=== PATIENT | male | born 1990 | race Caucasian/White ===

== ENCOUNTER 2016-08-23 21:21 | Emergency (ER) | payer OTHER ==
[2016-08-23 21:42] VITALS: BP 120/60; PULSE 72; TEMP 98.6; BMI 27.4
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
[2016-08-23] MEDS ORDERED: IBUPROFEN 600 MG TABLET (FP) PO ONE ×2 (22:20→22:27)
== END 2016-08-23 23:03 | disposition home or self-care (01) ==
LOC: JERFT 21:21
DX: S89.82XA Other specified injuries of left lower leg, initial encounter (principal); Y35.811A Legal intervention involving manhandling, law enforcement official injured, initial encounter; Y93.89 Activity, other specified; Y92.89 Other specified places as the place of occurrence of the external cause; Y99.0 Civilian activity done for income or pay
CPT/HCPCS: 73562-TC-LT; 99281-25

== ENCOUNTER 2016-12-12 18:22 | Emergency (ER) | payer OTHER ==
[2016-12-12 18:31] VITALS: BP 145/60; PULSE 102; TEMP 98.2; BMI 28.8
[2016-12-12] MEDS ORDERED: IBUPROFEN 600 MG TABLET (FP) PO ONE ×2 (18:43→18:47)
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
== END 2016-12-12 19:22 | disposition home or self-care (01) ==
LOC: JERFT 18:22
PROC: 2W3DX1Z Immobilization of Left Lower Arm using Splint (ICD-10-PCS; principal; 2016-12-12)
DX: S63.502A Unspecified sprain of left wrist, initial encounter (principal); Y35.891A Legal intervention involving other specified means, law enforcement official injured, initial encounter; Y93.89 Activity, other specified; Y92.89 Other specified places as the place of occurrence of the external cause; Y99.0 Civilian activity done for income or pay
CPT/HCPCS: 73110-TC-LT; 99281-25

== ENCOUNTER 2017-05-29 18:16 | Emergency (ER) | payer OTHER ==
[2017-05-29 18:20] VITALS: BP 130/73; PULSE 77; TEMP 98.3; BMI 28.8
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
[2017-05-29] MEDS ORDERED: BACITRACIN 15 GM TUBE TOPICAL OINTMENT TP ONE (18:39)
[2017-05-29] MEDS ORDERED: DIPHTH,PERTUSS(ACELL),TET 0.5 ML DISP.SYRIN IM ONE (18:39)
[2017-05-29] MEDS ORDERED: BACITRACIN 15 GM TUBE TOPICAL OINTMENT ONE (18:42)
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
== END 2017-05-29 19:00 | disposition home or self-care (01) ==
LOC: JERFT 18:16
PROC: 3E0234Z Introduction of Serum, Toxoid and Vaccine into Muscle, Percutaneous Approach (ICD-10-PCS; principal; 2017-05-29)
DX: S60.512A Abrasion of left hand, initial encounter (principal); V48.4XXA Person boarding or alighting a car injured in noncollision transport accident, initial encounter; Y92.414 Local residential or business street as the place of occurrence of the external cause; Y93.89 Activity, other specified; Y99.0 Civilian activity done for income or pay
CPT/HCPCS: 73130-TC-LR-FY; 90715; 99281-25

== ENCOUNTER 2018-06-07 16:18 | Emergency (ER) | payer OTHER ==
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
[2018-06-07 16:27] VITALS: BP 127/87; PULSE 101; TEMP 97.8; BMI 30.2
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
== END 2018-06-07 17:32 | disposition home or self-care (01) ==
LOC: JERFT 16:18
DX: S60.311A Abrasion of right thumb, initial encounter (principal); S60.411A Abrasion of left index finger, initial encounter; M25.512 Pain in left shoulder; Y35.811A Legal intervention involving manhandling, law enforcement official injured, initial encounter; Y93.89 Activity, other specified; Y92.89 Other specified places as the place of occurrence of the external cause; Y99.0 Civilian activity done for income or pay
CPT/HCPCS: 73130-TC-RT-FY; 99281-25

== ENCOUNTER 2018-06-20 17:34 | Emergency (ER) | payer OTHER ==
[2018-06-20 17:48] VITALS: BP 128/74; PULSE 87; TEMP 98.6; BMI 29.5
[2018-06-20] MEDS ORDERED: NAPROXEN 500 MG TABLET (FP) PO ONE (17:58)
[2018-06-20] MEDS ORDERED: NAPROXEN 500 MG TABLET (FP) ONE (18:00)
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
== END 2018-06-20 18:28 | disposition home or self-care (01) ==
LOC: JER 17:34 → JERFT 17:34
DX: S69.81XA Other specified injuries of right wrist, hand and finger(s), initial encounter (principal); S60.811A Abrasion of right wrist, initial encounter; S60.511A Abrasion of right hand, initial encounter; Y35.811A Legal intervention involving manhandling, law enforcement official injured, initial encounter; Y93.89 Activity, other specified; Y92.89 Other specified places as the place of occurrence of the external cause; Y99.0 Civilian activity done for income or pay
CPT/HCPCS: 73090-TC-RT-FY; 73110-TC-RT-FY; 73130-TC-RT-FY; 99281-25

== ENCOUNTER 2019-01-30 16:42 | Emergency (ER) | payer OTHER ==
--- NOTE | 2019-01-30 17:03 | PDOC ---
Rapid Medical Evaluation Time Seen by Provider: 01/30/19 17:00 Medical Evaluation: Allergies Allergy/AdvReac Type Severity Reaction Status Date / Time No Known Allergies Allergy Verified 06/07/18 16:27 01/30/19 17:00 I have performed a brief in-person evaluation of this patient Chief complaint: c/o pain behind Right knee since yesterday after tripping over a carpet, denies striking the ground. Pertinent PE findings: stable, NAD, non-focal I have ordered the following: R knee xray The patient will proceed to the ED for further evaluation. I have performed a brief in-person evaluation of this patient. Discharge Disposition - Diagnosis Knee pain, acute - Referrals - Patient Instructions - Post Discharge Activity
[2019-01-30 17:04] VITALS: BP 146/81; PULSE 95; TEMP 98.8; BMI 26.6
[2019-01-30] MEDS ORDERED: NAPROXEN 500 MG TABLET (FP) PO ONE (17:39)
[2019-01-30] MEDS ORDERED: NAPROXEN 500 MG TABLET (FP) ONE (17:40)
--- NOTE | 2019-01-30 18:02 | PDOC ---
History of Present Illness - General Chief Complaint: Pain, Acute Stated Complaint: R KNEE PAIN Time Seen by Provider: 01/30/19 17:00 Past History - Past Medical History Allergies/Adverse Reactions: Allergies Allergy/AdvReac Type Severity Reaction Status Date / Time No Known Allergies Allergy Verified 01/30/19 17:04 Home Medications: Ambulatory Orders Naproxen 500 mg PO BID #30 tablet 01/30/19 Anemia: No Asthma: Yes Cancer: No Cardiac Disorders: No CVA: No COPD: No DVT: No Dementia: No Diabetes: No Dialysis: No GI Disorders: No Disorders: No HTN: No Kidney Stones: No Liver Disease: No Seizures: No Thyroid Disease: No - Surgical History Abdominal Surgery: No Appendectomy: No Cardiac Surgery: No Cholecystectomy: No Lung Surgery: No Neurologic Surgery: No - Immunization History Td Vaccination: Yes TDAP Vaccination: No Immunization Up to Date: Yes - Psycho Social/Smoking Cessation Hx Smoking Status: No Smoking History: Never smoked Years of Tobacco Use: 0 Have you smoked in the past 12 months: No Number of Cigarettes Smoked Daily: 0 Cigars Per Day: 0 Information on smoking cessation initiated: No Hx Alcohol Use: No Drug/Substance Use Hx: No Substance Use Type: None Hx Substance Use Treatment: No *Physical Exam - Vital Signs Last Vital Signs Temp Pulse Resp BP Pulse Ox 98.8 F 95 H 18 146/81 95 01/30/19 17:02 01/30/19 17:02 01/30/19 17:02 01/30/19 17:02 01/30/19 17:02 Discharge - Discharge Information Clinical Impression/Diagnosis: Knee pain, acute Qualifiers: Laterality: right Qualified Code(s): M25.561 - Pain in right knee Hamstring strain Qualifiers: Encounter type: initial encounter Laterality: right Qualified Code(s): S76.311A - Strain of muscle, fascia and tendon of the posterior muscle group at thigh level, right thigh, initial encounter Condition: Stable Disposition: HOME - Admission No - Follow up/Referral Referrals: Mike Beard MD [Staff Physician] - - Patient Discharge Instructions Additional Instructions: You were evaluated for your knee pain today. Your x-ray is negative for fractures. You most likely pulled her hamstring. Please take the naproxen 500 mg twice a day for 1 week to help reduce the inflammation. You may apply heat to the area to help reduce pain. Avoid standing for long periods of time. Follow-up with orthopedics within 1 week if your symptoms are not improving. Return to the ER for worsening pain, numbness and tingling to the leg or if you have any changes in your symptoms. - Post Discharge Activity
== END 2019-01-30 18:05 | disposition home or self-care (01) ==
LOC: JERFT 16:42
DX: S76.311A Strain of muscle, fascia and tendon of the posterior muscle group at thigh level, right thigh, initial encounter (principal); M25.561 Pain in right knee; W18.09XA Striking against other object with subsequent fall, initial encounter; Y93.89 Activity, other specified; Y92.89 Other specified places as the place of occurrence of the external cause; Y99.0 Civilian activity done for income or pay
CPT/HCPCS: 73564-TC-RT-FY; 99282-25

== ENCOUNTER 2021-02-04 11:50 | Emergency (ER) | payer BC, OTHER ==
[2021-02-04 12:18] VITALS: BP 126/83; PULSE 92; TEMP 98.3; BMI 29.5
== END 2021-02-04 12:20 | disposition home or self-care (01) ==
LOC: FER 11:50
DX: S61.215A Laceration without foreign body of left ring finger without damage to nail, initial encounter (principal); W26.8XXA Contact with other sharp object(s), not elsewhere classified, initial encounter
CPT/HCPCS: 99281-25

== ENCOUNTER 2023-11-29 04:44 | Day surgery (SDC) | payer BC, OTHER ==
[2023-11-28 08:15] VITALS: BMI 32.8
[2023-11-29 08:32] VITALS: TEMP 98.5
[2023-11-29 09:02] VITALS: BP 123/78; PULSE 78; RESP 20
[2023-11-29 09:50] LABS: POTASSIUM 4.2 mmol/L (3.5-5.1)
[2023-11-29 09:52] LABS: ALBUMIN 4.1 g/dl (3.4-5.0); CALCIUM 9.6 mg/dL (8.5-10.1)
[2023-11-29 09:57] LABS: BILIRUBIN,TOTAL 0.5 mg/dL (0.2-1)
== END 2023-11-29 09:08 | disposition home or self-care (01) ==
LOC: JASU-ENDO 04:44
PROVIDERS: ATTEND Internal Medicine Gastroenterology
PROC: 0DB68ZX Excision of Stomach, Via Natural or Artificial Opening Endoscopic, Diagnostic (ICD-10-PCS; 2023-11-29)
PROC: 0DB98ZX Excision of Duodenum, Via Natural or Artificial Opening Endoscopic, Diagnostic (ICD-10-PCS; principal; 2023-11-29 08:00)
DX: R10.13 Epigastric pain (principal); K29.50 Unspecified chronic gastritis without bleeding; K31.9 Disease of stomach and duodenum, unspecified
CPT/HCPCS: 36415; 80053; 88305-TC; 88342-TC